=== PATIENT | male | born 1950 | race Caucasian/White ===

== ENCOUNTER → 2020-03-29 | Outpatient (CLI) | payer OTHER ==
[~2020-03-29] MED LIST: NAPR220 PO
== END ==
LOC: LAB 11:52 → LAB SHORT 11:52
DX: L57.0 Actinic keratosis (principal)
CPT/HCPCS: 88305

== ENCOUNTER → 2021-04-11 | Outpatient (CLI) | payer OTHER | END | disposition home or self-care (01) | LOC: LAB SHORT 09:35 | PROVIDERS: Hospitalist | DX: R97.20 Elevated prostate specific antigen [PSA] (principal) | CPT/HCPCS: 84153 ==

== ENCOUNTER → 2022-03-06 | Outpatient (CLI) | payer OTHER ==
[2022-03-06 16:19] LABS: BASOPHILS ABSOLUTE AUTO 0.04 K/mm3 (0.00-0.23); BASOPHILS PERCENT AUTO 1 % (0-2); EOSINOPHILS ABSOLUTE AUTO 0.07 K/mm3 (0.00-0.68); EOSINOPHILS PERCENT AUTO 1 % (0-6); Hematocrit 48.1 % (37.0-53.0); Hemoglobin 16.7 g/dL (13.5-17.5); IMMATURE GRAN ABSOLUTE AUTO 0.01 K/mm3 (0.00-0.10); IMMATURE GRAN PERCENT AUTO 0 % (0-1); LYMPHOCYTES ABSOLUTE AUTO 1.85 K/mm3 (0.84-5.20); LYMPHOCYTES PERCENT AUTO 28 % (21-46); MONOCYTES ABSOLUTE AUTO 0.47 K/mm3 (0.16-1.47); MONOCYTES PERCENT AUTO 7 % (4-13); Mean Corpuscular HGB 31.2 pg (26.0-34.0); Mean Corpuscular HGB Conc 34.7 g/dL (31.5-36.5); Mean Corpuscular Volume 90 fL (80-100); Mean Platelet Volume 9.4 fL (9.1-12.4); NEUTROPHILS ABSOLUTE AUTO 4.09 K/mm3 (1.96-9.15); NEUTROPHILS PERCENT AUTO 63 % (41-73); Platelet Count 224 K/mm3 (150-400); RDW Coefficient Variation 13.4 % (11.7-14.2); RDW Standard Deviation 44.1 fL (35.1-46.3); Red Blood Cell Count 5.35 M/mm3 (4.30-5.90); White Blood Cell Count 6.53 K/mm3 (4.00-11.30)
[2022-03-06 16:59] LABS: Alanine Aminotransfer (ALT/SGP 39 U/L (12-78); Albumin, Blood 3.8 g/dL (3.4-5.0); Albumin/Globulin Ratio 1.3 (0.8-1.8); Alk Phos 72 U/L (50-136); Anion Gap 5 mmol/L (6-16); Aspartate Aminotrans (AST/SGOT 17 U/L (12-37); Bilirubin, Total 0.4 mg/dL (0.1-1.0); Blood Urea Nitrogen 25 mg/dL (8-24); Bun/Creatinine Ratio 25.9 (12.0-20.0); CO2, Blood 28 mmol/L (21-32); Calcium, Blood 9.3 mg/dL (8.5-10.1); Chloride, Blood 107 mmol/L (98-108); Creatinine, Blood 0.97 mg/dL (0.60-1.20); Globulin, Blood 2.9 g/dL (2.2-4.0); Glomerular Filtration Rate 83 (60-); Glucose, Blood 95 mg/dL (70-99); Potassium, Blood 4.3 mmol/L (3.5-5.5); Sodium, Blood 140 mmol/L (136-145); Total Protein, Blood 6.7 g/dL (6.4-8.2)
== END | disposition home or self-care (01) ==
LOC: LAB SHORT 09:30
PROVIDERS: Hospitalist
DX: Z00.00 Encounter for general adult medical examination without abnormal findings (principal); R97.20 Elevated prostate specific antigen [PSA]
CPT/HCPCS: 80053; 84153; 85025

== ENCOUNTER 2024-12-16 12:54 | Day surgery (SDC) | payer MEDICARE ==
[~2024-12-16] VITALS: Ht 177.8 cm; Wt 83.7 kg
[~2024-12-16 12:54] MED LIST changes: +Glycopyrrolate 0.2 MG/ML 1MLVIAL ONE; +Ondansetron HCl 2 MG / ML 2ML Vial ONE; +ePHEDrine Sulfate 50 MG/ML 1ML Injection ONE
[2024-12-16] MEDS ORDERED: TAMS.4ER (13:17)
--- NOTE | 2024-12-16 16:45 | NUR ---
12/16/24 164Keshia Whittaker INJECTED 5 CC NORMAL SALINE TO RAISE TRANSVERSE COLON POLYP
[2024-12-16 17:31] VITALS: BP 108/76
== END 2024-12-16 17:16 | disposition home or self-care (01) ==
LOC: ORSCSDS 12:54
PROVIDERS: Internal Medicine Gastroenterology
PROC: 0DBL8ZX Excision of Transverse Colon, Via Natural or Artificial Opening Endoscopic, Diagnostic (ICD-10-PCS; principal; 2024-12-16 15:00)
PROC: 0DBN8ZX Excision of Sigmoid Colon, Via Natural or Artificial Opening Endoscopic, Diagnostic (ICD-10-PCS; principal; 2024-12-16 15:00)
PROC: 0DBM8ZX Excision of Descending Colon, Via Natural or Artificial Opening Endoscopic, Diagnostic (ICD-10-PCS; principal; 2024-12-16 15:00)
PROC: 0DBK8ZX Excision of Ascending Colon, Via Natural or Artificial Opening Endoscopic, Diagnostic (ICD-10-PCS; principal; 2024-12-16 15:00)
DX: Z11.1 Encounter for screening for respiratory tuberculosis (principal); D12.5 Benign neoplasm of sigmoid colon; D12.2 Benign neoplasm of ascending colon; D12.3 Benign neoplasm of transverse colon; D12.4 Benign neoplasm of descending colon; N40.0 Benign prostatic hyperplasia without lower urinary tract symptoms
CPT/HCPCS: 88305; J0461; J2003; J2405; J2704; J7120